=== PATIENT | female | born 1965 | race African-American/Black ===

== ENCOUNTER 2019-11-08 17:22 | Emergency (ER) | payer MEDICAID ==
[~2019-11-08] VITALS: Ht 167.6 cm; Wt 100.9 kg
[2019-11-08 18:07] LABS: BASOPHILS % (AUTO) 1.4 % (0.0-2.0); EOSINOPHILS % (AUTO) 0.8 % (1.0-6.0); HEMATOCRIT 46.2 % (36-46); HEMOGLOBIN 15.1 g/dL (12.0-16.0); LYMPHOCYTES # (AUTO) 4.2 K/uL (1.0-4.8); MEAN CORPUSCULAR HEMOGLOBIN 29.3 pg (26.0-34.0); MEAN CORPUSCULAR HGB CONC 32.7 G/dL (31.0-37.0); MEAN CORPUSCULAR VOLUME 90 fL (80-100); MONOCYTES # (AUTO) 0.6 K/uL (0.1-1.0); MONOCYTES % (AUTO) 8.4 % (2.0-9.0); NEUTROPHILS # (AUTO) 2.7 K/uL (1.8-7.7); NEUTROPHILS % (AUTO) 35.4 % (40.0-70.0); PLATELET COUNT (AUTO) 265 K/uL (150-450); RED BLOOD CELL COUNT(AUTO) 5.15 MIL/uL (4.00-5.20); RED CELL DISTRIBUTION WIDTH 14.9 % (11.5-14.5)
[2019-11-08 18:31] LABS: ALANINE AMINOTRANSFERASE 33 U/L (12-78); ALBUMIN 4.2 g/dL (3.4-5.0); ALKALINE PHOSPHATASE 94 U/L (46-116); ANION GAP 7 mmol/L (8-16); ASPARTATE AMINOTRANSFERASE 18 U/L (15-37); BILIRUBIN,TOTAL 0.6 mg/dL (0.1-1.0); CALCIUM, TOTAL 10.4 mg/dL (8.8-10.5); CARBON DIOXIDE 29 mmol/L (22-29); CHLORIDE 102 mmol/L (98-107); CREATININE 0.77 mg/dL (0.60-1.30); GLOMERULAR FILTR. RATE CALC > 60 mL/min (>60); GLUCOSE,RANDOM 112 mg/dL (70-110); LIPASE 59 U/L (73-393); POTASSIUM 3.6 mmol/L (3.5-5.1); SODIUM SERUM 138 mmol/L (136-145); TOTAL PROTEIN, SERUM 8.3 g/dL (6.4-8.2); UREA NITROGEN, BLOOD 15 mg/dL (7-18)
[2019-11-08 18:33] LABS: LACTIC ACID 1.8 mmol/L (0.4-2.0)
[2019-11-08 18:52] LABS: B-TYPE NATRIURETIC PEPTIDE 8 pg/mL (0-100)
[2019-11-08 19:27] LABS: INFLUENZA TYPE A NEGATIVE FOR TYPE A (NEGATIVE); INFLUENZA TYPE B NEGATIVE FOR TYPE B (NEGATIVE)
[2019-11-08] MEDS ORDERED: ALBUTEROL SULFATE HFA 90 MCG/PUFF 8 GM INHALER IH ONE (20:30)
[2019-11-08 21:00] VITALS: BP 124/81
== END 2019-11-08 21:23 | disposition home or self-care (01) ==
LOC: EMS 17:25
DX: J42 Unspecified chronic bronchitis (principal); M79.10 Myalgia, unspecified site; R07.89 Other chest pain; F17.210 Nicotine dependence, cigarettes, uncomplicated; F12.90 Cannabis use, unspecified, uncomplicated; I10 Essential (primary) hypertension; E78.00 Pure hypercholesterolemia, unspecified; Z03.818 Encounter for observation for suspected exposure to other biological agents ruled out
CPT/HCPCS: 83605; 87635; 87804; 93005; 94640; 99406; J3535

== ENCOUNTER 2021-01-20 20:25 | Emergency (ER) | payer MEDICAID ==
[~2021-01-20] VITALS: Ht 165.1 cm; Wt 95.5 kg
[2021-01-20] MEDS ORDERED: LOSA25TA21 PO (20:52)
[2021-01-20] MEDS ORDERED: ASPI-1450 PO (20:52)
[2021-01-20] MEDS ORDERED: AMLO-257 PO (20:52)
[2021-01-20] MEDS ORDERED: LIDOCAINE 5% TRANSDERMAL PATCH TD ONE (22:15)
[2021-01-20] MEDS ORDERED: ACETAMINOPHEN 325 MG TABLET PO ONE (22:15)
[2021-01-20] MEDS ORDERED: DIAZEPAM 5 MG TABLET PO ONE (23:00)
[2021-01-20 23:30] VITALS: BP 129/78
== END 2021-01-21 05:01 | disposition home or self-care (01) ==
LOC: EMS 20:25
DX: M51.27 Other intervertebral disc displacement, lumbosacral region (principal); I10 Essential (primary) hypertension; E78.00 Pure hypercholesterolemia, unspecified; F17.210 Nicotine dependence, cigarettes, uncomplicated; F12.90 Cannabis use, unspecified, uncomplicated; F15.90 Other stimulant use, unspecified, uncomplicated
CPT/HCPCS: 99284; Z7502; Z7610